=== PATIENT | male | born 1970 | race Caucasian/White ===

== ENCOUNTER 2016-12-11 06:20 | Day surgery (SDC) | payer BC ==
[~2016-12-11] VITALS: Ht 190.5 cm; Wt 134.8 kg
[~2016-12-11 06:20] MED LIST: ASPIRIN81 M2 PO; EFFIENT10 MG PO; FLEXERIL5 MG PO; FLONASE ALLERG9.9 ML BOTH NARES; LIPITOR40 MG PO; LISINOPRIL40 MG PO; METOPROLOL TART25 MG PO; NITROSTAT0.4 MG SL; STOOL SOFTENER100 MG PO; TYLENOL WITH C1 EACH PO
[2016-12-11 07:19] LABS: BASOPHIL COUNT 0.1 K/uL (0-0.1); EOSINOPHIL (%) 3.5 % (0-5); EOSINOPHIL COUNT 0.1 K/uL (0-0.3); HEMATOCRIT 42.8 % (38.0-50.0); IMMATURE GRANULOCYTE (%) 0.3 % (0.0-0.7); LYMPHOCYTE COUNT 1.7 K/uL (1.0-2.8); MCHC 34.6 G/DL (30.0-36.0); MCV 89.5 FL (86-99); MEAN PLAT.VOLUME 9.8 uM^3 (9.0-12.4); MONOCYTE (%) 11.9 % (3-12); MONOCYTE COUNT 0.5 K/uL (0-0.8); NEUTROPHIL COUNT 1.6 K/uL (1.8-6.4); PLATELET COUNT 216 K/uL (156-360); RBC DIS.WIDTH-CV 12.5 % (11.8-14.6); RBC DIS.WIDTH-SD 40.1 % (39-53); RED BLOOD COUNT 4.78 M/uL (4.00-5.50)
[2016-12-11 07:54] LABS: ANION GAP 9 MEQ/L (2-14); CHLORIDE 105 MEQ/L (99-109); GFR ESTIMATE (CALCULATED) > 59 mL/min/; GLUCOSE 96 mg/dL (70-99); POTASSIUM 4.4 MEQ/L (3.7-5.4); SAMPLE HEMOLYSIS CHECK 0; SAMPLE ICTERIC CHECK 0; SAMPLE LIPEMIA CHECK 0; SODIUM 139 MEQ/L (136-147); UREA NITROGEN (BUN) 11 mg/dL (9-23)
[2016-12-11 13:19] VITALS: BP 142/104
[2016-12-11 13:32] VITALS: BP 113/66
[2016-12-11 16:45] VITALS: BP 137/66
[2016-12-11 21:40] VITALS: BP 112/72
[2016-12-12 01:17] VITALS: BP 117/58
[2016-12-12 05:31] VITALS: BP 108/51
[2016-12-12 06:34] LABS: EOSINOPHIL (%) 3.9 % (0-5); EOSINOPHIL COUNT 0.2 K/uL (0-0.3); HEMATOCRIT 42.2 % (38.0-50.0); LYMPHOCYTE COUNT 1.6 K/uL (1.0-2.8); MCH 30.6 PG (29.0-34.0); MCHC 33.9 G/DL (30.0-36.0); MCV 90.2 FL (86-99); MEAN PLAT.VOLUME 9.6 uM^3 (9.0-12.4); MONOCYTE (%) 12.1 % (3-12); MONOCYTE COUNT 0.6 K/uL (0-0.8); NEUTROPHIL (%) 48.8 % (45-76); NEUTROPHIL COUNT 2.3 K/uL (1.8-6.4); PLATELET COUNT 218 K/uL (156-360); RBC DIS.WIDTH-CV 12.5 % (11.8-14.6); RBC DIS.WIDTH-SD 40.8 % (39-53); RED BLOOD COUNT 4.68 M/uL (4.00-5.50); WHITE BLOOD COUNT 4.6 K/uL (4.1-10.2)
[2016-12-12 06:59] LABS: ANION GAP 10 MEQ/L (2-14); CHLORIDE 104 MEQ/L (99-109); GFR ESTIMATE (CALCULATED) > 59 mL/min/; GLUCOSE 94 mg/dL (70-99); POTASSIUM 3.9 MEQ/L (3.7-5.4); SAMPLE HEMOLYSIS CHECK 0; SAMPLE ICTERIC CHECK 0; SAMPLE LIPEMIA CHECK 0; SODIUM 138 MEQ/L (136-147); UREA NITROGEN (BUN) 8 mg/dL (9-23)
[2016-12-12 10:43] VITALS: BP 148/72
[2016-12-12] MEDS ORDERED: EFFIENT10 MG PO (13:34)
== END 2016-12-12 14:07 | disposition home or self-care (01) ==
LOC: CATH 06:20 → 4EAST 10:00
PROVIDERS: Internal Medicine Cardiovascular Disease
DX: I25.10 Atherosclerotic heart disease of native coronary artery without angina pectoris (principal); R07.9 Chest pain, unspecified; Z79.82 Long term (current) use of aspirin; E78.5 Hyperlipidemia, unspecified; I10 Essential (primary) hypertension; G47.30 Sleep apnea, unspecified
CPT/HCPCS: 80048; 85025; 93005; C1725; C1769; C1874; C1887; G0378; J0153; J1644; J2250; J3010; J7050

== ENCOUNTER 2017-07-15 07:40 | Day surgery (SDC) | payer BC ==
[~2017-07-15] VITALS: Ht 190.5 cm; Wt 117.0 kg
[~2017-07-15 07:40] MED LIST changes: +CALCIUM500 M4 PO; +CARDIZEM CD120 MG PO; +CO Q-10100 MG PO; +CURCUMIN PO; +GINGER500 MG PO; +MAGNESIUM100 MG PO; +MULTIVITAMIN1 EAC2 PO; +ZINC50 M1 PO; +[UNRECOGNIZED DRUG - OTHER] PO
== END 2017-07-15 14:45 | disposition home or self-care (01) ==
LOC: CATH 07:40
DX: I25.10 Atherosclerotic heart disease of native coronary artery without angina pectoris (principal); T82.858A Stenosis of other vascular prosthetic devices, implants and grafts, initial encounter; I25.2 Old myocardial infarction; G47.33 Obstructive sleep apnea (adult) (pediatric); I10 Essential (primary) hypertension; E78.5 Hyperlipidemia, unspecified; R53.82 Chronic fatigue, unspecified; Z79.82 Long term (current) use of aspirin
CPT/HCPCS: 93005; C1769; C1887; J1644; J2250; J3010